=== PATIENT | female | born 1955 | race Caucasian/White ===

== ENCOUNTER 2018-02-18 16:09 | Emergency (ER) | payer MEDICARE ==
[~2018-02-18] VITALS: Ht 170.2 cm; Wt 106.6 kg
[~2018-02-18 16:09] MED LIST: ARIP2TAB3 PO; BUDE10.2 IH; CLON1TAB11 PO; CRESTOR10 MG PO; DICY20TA3 PO; DILT120C2 PO; ESOM40CA PO; FERR325T58 PO; LORA10TA68 PO; MONT10TA49 PO; ONDA4TAB10 PO; OXYC1TAB15 PO; Oxycodone Hcl/Acetaminophen PO; PRIM50TA PO; RANI150T2 PO; ROFL500T7 PO; VENL150C PO; VENL75TA PO; WARF-78 PO; XOPENEX HFA15 GM IH; XOPENEX1.25 MG/3 NEB
[2018-02-18 17:08] VITALS: BP 130/75
[2018-02-18] MEDS ORDERED: HYDROcodone/APAP 5/325MG 1 TAB TABLET PO ONE (17:45)
[2018-02-18] MEDS ORDERED: HYDR-3164 PO (19:21)
--- NOTE | 2018-02-18 19:21 | PHYS DOC ---
Past Medical History Past Medical History: Anxiety, Asthma, COPD, Depression, Diverticulitis, DVT, Hypertension, Other Past Surgical History: Knee Replacement, Other Alcohol Use: None Drug Use: None Adult General Chief Complaint Chief Complaint: LOWEREXTREMITY INJURY HPI HPI Patient is a 62 year old male who presents to the emergency room with complaints of left knee and left lower leg pain after a fall in her urine this afternoon. Patient states that she was walking her new dog when she tripped and fell. She denies any numbness, or tingling. She reports increased pain with weightbearing and states she has been unable to walk on the leg since the injury. Patient reports a history of a previous left total knee replacement several years ago. She did not take anything for relief of her pain prior to arrival currently she reports her pain as a 10 out of 10 on pain scale. Review of Systems Review of Systems Musculoskeletal: Denies neck or back pain; see HPI Integument: Denies rash or skin lesions [] Neurologic: Denies headache, LOC, focal weakness or sensory changes [] All other systems were reviewed and found to be within normal limits, except as documented in this note. Current Medications Current Medications Current Medications Medications (Trade) Dose Ordered Sig/Mark Start Time Stop Time Status Last Admin Dose Admin Acetaminophen/ Hydrocodone Bitart (Lortab 5/325) 1 tab 1X ONCE 02/18/18 17:45 02/18/18 17:46 DC 02/18/18 17:42 1 TAB Allergies Allergies Allergies Coded Allergies Type Severity Reaction Last Updated Verified Penicillins Allergy Severe THROAT SWELLS ,RASH 10/02/14 Yes aspirin Allergy Severe THROAT SWELLS ,RASH 10/02/14 Yes ibuprofen Adverse Reaction Intermediate Nausea and Vomiting 10/02/14 Yes metoclopramide Adverse Reaction Intermediate MAKES THE PT' S TREMORS WORSE 10/02 Yes promethazine Adverse Reaction Intermediate MAKES THE PT'S TREMORS WORSE Yes Physical Exam Physical Exam Constitutional: Well developed, well nourished, no acute distress, non-toxic appearance, obese. [] HENT: Normocephalic, atraumatic, bilateral external ears normal, nose normal. [ ] Eyes:conjunctiva normal, no discharge. [] Neck: Normal range of motion, no stridor. [] Skin: Warm, dry, no erythema, no rash. [] Extremities: L knee and LLE tenderness to palpation, No tenderness to palpation of L hip or ankle, no cyanosis, Limited ROM of L knee due to pain, 1+ edema of L knee noted. [] Neurologic: Alert and oriented X 3, normal motor function, normal sensory function, no focal deficits noted. [] Psychologic: Affect normal, judgement normal, mood normal. [] Current Patient Data Vital Signs Vital Signs Date Time Temp Pulse Resp B/P (MAP) Pulse Ox O2 Delivery O2 Flow Rate FiO2 02/18/18 17:42 16 99 Room Air 02/18/18 17:08 98.3 61 130/75 (93) 98.3 EKG EKG [] Radiology/Procedures Radiology/Procedures left knee and left tib/fib xrays are negative for acute fracture or dislocation read by Dr. Roldan[] Course & Med Decision Making Course & Med Decision Making Pertinent Labs and Imaging studies reviewed. (See chart for details) Dx: contusion of L knee and LLE PT was prescribed hydrocodone for pain, Will follow up with her orthopedic doctor if symptoms persist. Patient verbalized an understanding of home care, medications, follow-up, and return to ED instructions and was in agreement with the plan of care. I have participated in the care of this patient and I have reviewed and agree with all pertinent clinical information above including history, exam, and recommendations. [] Dragon Disclaimer Dragon Disclaimer This electronic medical record was generated, in whole or in part, using a voice recognition dictation system. Departure Departure Impression: Primary Impression: Contusion of left knee and lower leg Additional Impression: Fall Disposition: 01 HOME, SELF-CARE Condition: STABLE Referrals: JENNY HANSON MD (PCP) CHARISMA BARRETO MD Patient Instructions: Contusion, [id number], Fall Prevention and Home Safety , [id number], Knee Pain, [id number] Additional Instructions: Fill prescription(s) and use as directed. Recommend application of ice, elevation, and rest of affected extremity. Wear the becca wraps that were placed until follow up appointment with your orthopedic doctor, . Return to the ER if your symptoms worsen. Scripts Hydrocodone/Apap 5-325 (NORCO 5-325 TABLET) 1 Each Tablet 1-2 TAB PO Q4-6HRS PRN for PAIN for 4 Days, #16 TAB 0 Refills Prov: FAYE JOHNSON APRN 02/18/18 Problem Qualifiers Primary Impression: Contusion of left knee and lower leg Encounter type: initial encounter Qualified Codes: S80.02XA - Contusion of left knee, initial encounter; S80.12XA - Contusion of left lower leg, initial encounter Additional Impression: Fall Encounter type: initial encounter Qualified Codes: W19.XXXA - Unspecified fall, initial encounter FAYE JOHNSON APRN Feb 18, 2018 19:21 RANDY ROLDAN MD Feb 25, 2018 06:07
--- NOTE | 2018-02-19 07:44 | RAD ---
EXAM: 1. AP, oblique and lateral views of the left knee 2. AP and lateral views of the left tibia and fibula DATE: 02/18/2018 5:41 PM INDICATION: ER PATIENT. TRAUMA FALL TODAY. PAIN IN THE LEFT KNEE. PRIOR XRAY COMPARISON: No Prior FINDINGS: Changes of a left total knee arthroplasty are seen, in good alignment without definite hardware application. Components are well seated without periprosthetic lucency. Small left knee joint effusion. Mild decreased bone mineral density. No evidence of acute fracture or dislocation. IMPRESSION: 1. Left total knee arthroplasty, in good alignment without hardware complication or fracture. 2. No definite distal tibial or fibular fractures identified. Electronically signed by: Huber Ramey MD (02/19/2018 7:40 AM) [facility]
== END 2018-02-18 19:33 | disposition home or self-care (01) ==
LOC: ER 16:09
DX: S80.02XA Contusion of left knee, initial encounter (principal); S80.12XA Contusion of left lower leg, initial encounter; J44.9 Chronic obstructive pulmonary disease, unspecified; I10 Essential (primary) hypertension; Z86.718 Personal history of other venous thrombosis and embolism; Z96.652 Presence of left artificial knee joint; Z88.0 Allergy status to penicillin; Z88.6 Allergy status to analgesic agent; Z88.8 Allergy status to other drugs, medicaments and biological substances; W01.0XXA Fall on same level from slipping, tripping and stumbling without subsequent striking against object, initial encounter; Y93.89 Activity, other specified; Y92.89 Other specified places as the place of occurrence of the external cause; Y99.8 Other external cause status
CPT/HCPCS: 73562; 73590; 99283

== ENCOUNTER 2020-05-29 07:01 | Day surgery (SDC) | payer MEDICARE ==
[~2020-05-29] VITALS: Ht 172.7 cm; Wt 108.0 kg
[~2020-05-29 07:01] MED LIST changes: +ACYC400T PO; +AZIT250T6 PO; +CHOL500050 PO; -CLON1TAB11 PO; +CLONAZEPAM1 MG PO; +DULO60CA6 PO; +HYDR-3164 PO; +HYDROmorphone 2 MG/ML VIAL IVP PRN; +IV RINGERS,LACTATED 1000ML 1,000 ML IV SCH; +MORPHINE SULFATE 2 MG/ML VIAL. IVP PRN; +PANT40TA77 PO; +PROCHLORPERAZINE 10 MG/2 ML VIAL. IVP PRN; -WARF-78 PO; +WARF5TAB2 PO; +fentaNYL PF VIAL 100 MCG/2 ML VIAL IVP PRN
[2020-05-29] MEDS ORDERED: EPINEPHrine VIAL 30 MG/30 ML VIAL ONE (07:11)
[2020-05-29] MEDS ORDERED: ROPIVacaine 0.5% PF 20 ML VIAL. ONE (07:13)
[2020-05-29] MEDS ORDERED: MIDAZOLAM HCL/PF 2 MG/2 ML VIAL. ONE (07:13)
[2020-05-29] MEDS ORDERED: DEXAMETHASONE SOD PHOS 20 MG/5 ML VIAL. ONE (07:16)
[2020-05-29] MEDS ORDERED: IV RINGERS,LACTATED 1000ML 1,000 ML IV SCH (07:45)
[2020-05-29] MEDS ORDERED: PROPOFOL 10 MG/ML (20ML) VIAL. IV ONE (07:49)
[2020-05-29] MEDS ORDERED: LIDOCAINE 2% PF 5 ML VIAL. ONE (07:49)
[2020-05-29] MEDS ORDERED: fentaNYL PF VIAL 100 MCG/2 ML VIAL ONE (07:49)
[2020-05-29] MEDS ORDERED: ROCURONIUM 50 MG/5 ML VIAL. ONE (07:49)
[2020-05-29] MEDS ORDERED: DEXAMETHASONE SOD PHOS 4 MG/ML VIAL ONE (07:49)
[2020-05-29] MEDS ORDERED: ONDANSETRON PF 4 MG/2 ML VIAL. ONE ×2 (07:49→09:05)
[2020-05-29] MEDS ORDERED: GLYCOPYRROLATE 1 MG/5 ML VIAL. ONE (09:03)
[2020-05-29] MEDS ORDERED: NEOSTIGMINE METHYLSULFATE 5 MG/5 ML SYRINGE. ONE (09:03)
[2020-05-29] MEDS ORDERED: OXYC1TAB19 PO (09:11)
[2020-05-29 09:13] LABS: BASO % 1 % (0-3); EOS # 0.1 x10^3/uL (0.0-0.7); EOS % 4 % (0-3); HEMATOCRIT 40.5 % (36.0-47.0); HEMOGLOBIN 13.6 g/dL (12.0-15.5); LYMPH # 1.9 x10^3/uL (1.0-4.8); LYMPH % 46 % (24-48); MEAN CORPUSCULAR HEMOGLOBIN 31 pg (25-35); MEAN CORPUSCULAR HGB CONC 34 g/dL (31-37); MEAN CORPUSCULAR VOLUME 92 fL (79-100); MONO # 0.3 x10^3/uL (0.0-1.1); MONO % 8 % (0-9); NEUT # 1.7 x10^3/uL (1.8-7.7); NEUT % 42 % (31-73); PLATELET COUNT 208 x10^3/uL (140-400); RED BLOOD COUNT 4.42 x10^6/uL (3.50-5.40); RED CELL DISTRIBUTION WIDTH 13.9 % (11.5-14.5)
[2020-05-29 09:15] LABS: CALCIUM 8.6 mg/dL (8.5-10.1); CREATININE 0.7 mg/dL (0.6-1.0); GFR 83.7; POTASSIUM 3.4 mmol/L (3.5-5.1)
[2020-05-29] MEDS ORDERED: oxyCODONE/APAP 7.5/325 1 TAB TABLET PO ONE (09:15)
[2020-05-29] MEDS ORDERED: SEVOFLURANE 61 TO 120 MINUTES. IH ONE (09:20)
--- NOTE | 2020-05-29 09:23 | DISCH ---
DISCHARGE INSTRUCTIONS Condition on Discharge Condition on Discharge: Stable Activity After Discharge Activity Instructions for Disc: Other, see below Lifting Instructions after Dis: No heavy lifting (Limit resisted elbow flexion lifting to 5 pounds for the first 6 weeks postop) Weight Bearing Status after Di: As tolerated Diet after Discharge Diet after Discharge: Regular Wound Incision Care Wound/Incision Care: Change dressing (Remove dressing in 2 days may then shower, no soaking in tub or pool until follow-up visit) Community/Resources/Services Services at Discharge: PT EVALUATE & TREAT (Active and passive range of motion gentle strengthening as tolerated limit elbow flexion to 5 pounds force for 6 weeks postop) Contacting the DRRubén after DC Call your doctor for: If your condition worsens Follow-Up Follow up with: Dr. Bustos or Sana 7 to 10 days Treatment/Equipment after DC Adaptive Equipment Issued: None BRIAN BUSTOS MD May 29, 2020 09:23
[2020-05-29 10:46] VITALS: BP 126/68
--- NOTE | 2020-05-29 15:42 | PDOC4 ---
Operative Note Operative Note Date of surgery: 05/29/2020 Preoperative diagnosis: Superior labral tear left shoulder Postoperative diagnosis: Same with superior labral and biceps anchor involvement, chondral flap tear of humeral head and glenoid, partial-thickness undersurface tear of supraspinatus and subscapularis as well as the inferior portion posterior labrum Operative procedure: 1. Left shoulder arthroscopy with extensive debridement of labrum humeral head glenoid partial-thickness rotator cuff tears 2. Biceps tenodesis Surgeon: Juli Drafter Electronic: Maria De Jesus Gonzalez first beater Anesthesia: General plus scalene block Estimated blood loss: 15 cc Complications: None Operative indications: Please see my orthopedic clinic note for detailed operative indications and note that we had expected superior labral pathology and a likely biceps tenodesis in addition to addressing any other pathology noted. I went over risks benefits postoperative course with her including the possibility of continued pain nerve or blood vessel damage medical or other anesthetic complications including infection among others. All her questions were answered she wished to proceed with surgical evaluation and treatment. Operative text: Patient was identified procedure verified patient placed in the supine position on the operating table. After adequate amounts of general anesthesia plus a pre-existing scalene block were obtained she was placed in the decubitus position left side up with all bony prominences well-padded. Left shoulder was examined under anesthesia found to have full range of motion and no instability. The left shoulder was then prepped and draped in standard sterile fashion and placed in the arthroscopic arm fam with a total of 10 pounds traction. After timeout was performed patient procedure identified and verified a standard posterior portal was established an anterior portal established using spinal needle localization and the shoulder joint was systematically examined. She did have a superior labral tear compromising the biceps anchor and as a result I elected tagged the biceps and perform a tenotomy for later tenodesis. She had severe labral fraying throughout the labrum particularly anteriorly inferiorly which was trimmed back to stable tissue with the arthroscopic shaver and bipolar electrocautery. She also had chondral flap tears of the central aspect of the humeral head trimmed back to stable tissue with the arthroscopic shaver and chondral flap tear of the central glenoid as well which was debrided back to stable tissue and lightly cauterized on its edges with bipolar electrocautery. She also had partial thickness undersurface tears of the supraspinatus and subscapularis which was debrided back to stable tissue but no repair required. Subacromial space was then entered and bursa was cleared to allow visualization of the intact rotator cuff from the bursal side. The intact biceps tendon was retrieved through an anterior portal and appropriately tensioned and tenodesed in the bicipital groove through the anterior portal with an 8 x 16 mm Quatro bolt tenodesis screw with excellent catholic of the biceps contour. The shoulder was drained of arthroscopic fluid portals closed with subcutaneous Vicryl and Monocryl suture Steri-Strips and Mastisol were applied as were sterile dressings. Patient was returned to recovery room in stable condition having tolerated the procedure well. Maria De Jesus cummins was present for the procedure and assisted in patient positioning prepping draping positioning closure and dressings BRIAN WALL MD May 29, 2020 15:42
== END 2020-05-29 11:30 | disposition home or self-care (01) ==
LOC: SURG 07:01
PROVIDERS: ATTEND Orthopaedic Surgery
DX: S43.432A Superior glenoid labrum lesion of left shoulder, initial encounter (principal); E78.00 Pure hypercholesterolemia, unspecified; J44.9 Chronic obstructive pulmonary disease, unspecified; K21.9 Gastro-esophageal reflux disease without esophagitis; E66.9 Obesity, unspecified; M19.90 Unspecified osteoarthritis, unspecified site; F41.9 Anxiety disorder, unspecified; F32.9 Major depressive disorder, single episode, unspecified; Z90.49 Acquired absence of other specified parts of digestive tract; Z98.890 Other specified postprocedural states; Z79.899 Other long term (current) drug therapy; Z88.0 Allergy status to penicillin; Z88.8 Allergy status to other drugs, medicaments and biological substances; X58.XXXA Exposure to other specified factors, initial encounter; Y93.89 Activity, other specified; Y92.89 Other specified places as the place of occurrence of the external cause; Y99.8 Other external cause status
CPT/HCPCS: 29828; 36415; 64415; 80048; 85025; A4213; A4364; A4930; C1713; J0171; J0690; J1100; J2250; J2405; J2704; J2710; J2795; J3010; J3490; A4452

== ENCOUNTER → 2020-08-31 | Outpatient (CLI) | payer MEDICARE ==
[~2020-08-31] MED LIST changes: +ACYC-12 PO; -ACYC400T PO; -HYDROmorphone 2 MG/ML VIAL IVP PRN; -IV RINGERS,LACTATED 1000ML 1,000 ML IV SCH; -MORPHINE SULFATE 2 MG/ML VIAL. IVP PRN; +OXYC1TAB19 PO; -PROCHLORPERAZINE 10 MG/2 ML VIAL. IVP PRN; -fentaNYL PF VIAL 100 MCG/2 ML VIAL IVP PRN
--- NOTE | 2020-08-31 16:18 | KCIC ---
STUDY: MRI of the right shoulder without contrast INDICATION: Right shoulder pain and limited range of motion. COMPARISON: No previous MRI is available for review. TECHNIQUE: Multiplanar MR imaging of the right shoulder performed without the use of intravenous or i ntra-articular contrast. FINDINGS: Mild study degradation on account of motion. AC joint: Mild AC joint arthrosis. Mild subacromial subdeltoid bursitis. Rotator cuff: Intermediate grade tearing/fraying of the mid to posterior supraspinatus at the critica l zone collectively with up to approximately 50 percent tendon cross-sectional involvement as seen on image 12 series 7 and image 16 series 5. There is both bursal and articular sided involvement. Backg round supraspinatus tendinosis. Mild infraspinatus tendinosis without a high-grade or full-thickness tear. Intact teres minor. Mild subscapularis tendinosis. Muscular bulk is maintained. Labrum: Degenerative labral heterogeneity and blunting at the posterior/superior quadrant. Long head biceps tendon: The long head biceps is intact and normally located. The intra-articular por tion is mildly thinned which could be on account of a partial tear. Cartilage: Difficult to assess due to motion. No large full-thickness defect. There does appear to be chondral loss at the medial humeral head. Bones: Mild degenerative ridging along the posterior lip of the glenoid. No acute fracture or focally aggressive marrow signal abnormality. Miscellaneous: No significant shoulder joint effusion. No axillary adenopathy. Impression: 1. Intermediate grade tearing/fraying of the mid to posterior supraspinatus at the critical zone inv olving both articular and bursal sided fibers and collectively with up to 50 percent tendon cross-sec tional involvement. Background tendinosis. Mild tendinosis of the infraspinatus and subscapularis as well. Muscular bulk is maintained. 2. Heterogeneity of labral morphology and signal at the posterior/superior quadrant without a discre te tear. The long head biceps is intact but potentially with a mild partial tear of the intra-articul ar portion given diminutive size. 3. Suspected partial thickness chondrosis at the medial humeral head taking into consideration motio n. 4. Mild subacromial subdeltoid bursitis. Electronically signed by: SHARLENE TORRES MD (08/31/2020 4:15 PM) [id number]
== END ==
LOC: KCIC MRI 14:45
PROVIDERS: ATTEND Physician Assistant
DX: M75.121 Complete rotator cuff tear or rupture of right shoulder, not specified as traumatic (principal); M19.011 Primary osteoarthritis, right shoulder; M75.51 Bursitis of right shoulder
CPT/HCPCS: 73221